=== PATIENT | male | born 1950 | race Caucasian/White ===

== ENCOUNTER 2022-11-12 20:30 | Emergency (ER) | payer MEDICARE, BC, SELFPAY ==
[2022-11-12 20:41] VITALS: BP 165/78; PULSE 85; RESP 18; TEMP 36.9; O2SAT 99; BMI 27.9
[2022-11-12 21:29] VITALS: BP 135/74; PULSE 72; RESP 18; TEMP 36.7; O2SAT 99
[2022-11-12 21:30] VITALS: BP 135/74; PULSE 72; RESP 18; TEMP 36.7
--- NOTE | 2022-11-12 22:51 | ED.GENADULT ---
HPI - General Adult General Chief complaint: Back Injury/Pain Stated complaint: fell on sunday Time Seen by Provider: 11/12/22 20:34 Source: patient and family Mode of arrival: ambulatory Limitations: no limitations History of Present Illness HPI narrative: 71-year-old male presents to the emergency department specifically requesting a muscle relaxant. He reports that he fell on Sunday morning which is 2 days ago and was evaluated in the emergency department at the [place]. this was found to be secondary to dehydration, he was given IV fluids and discharged home. He has been taking Tylenol for his pain but admittedly not at the full recommended doses. His last dose was 2 Tylenol at 7:00 p.m. which was about 2 hours prior to presentation. It sounds as though a very thorough workup was done. Since the fall he has had some crampy pain in his left posterior lower rib, low back area. There is no radiculopathy. No numbness. No loss of bowel or bladder control. No prior history of surgery in this area or significant prior injury. He has not tried taking NSAIDs or other similar medication for this. We do not have much information on him but from what I can gather from him he has a history of a stroke 3 years ago which has affected his right side. He has some ongoing weakness and balance issues especially in his right hand and right leg. He is on both aspirin and Plavix as a result of the stroke but no other anticoagulants. He has no history of GI bleed. He shows me his medication list which I extensively review. He denies any prior history of urinary retention. The pain does come and go and is not overly bothersome but he is worried about having another spasm and needing more pain control in the middle of the night. Patient failed to mention that he was in the emergency department at the [place] again last night until the end of our conversation and was prescribed prednisone and an antibiotic for respiratory issues. It sounds like he may have some underlying COPD. He said that this is helping markedly with his breathing. None of this was on the medicine list he provided to me even though I did ask him several times if there were any other changes that were not reflected on his list. There has been no new falls or injuries since 2 days ago. His spouse does accompany him and helps fill in gaps in his story. He does not use a walker or a cane at baseline continues to live independently. Past medical history form and I can gather is notable for hypertension, anxiety, prior stroke. His medications are reviewed notable for antihypertensives, aspirin and Plavix, vitamin supplements. No known drug allergies. The prednisone and antibiotic were not reflected on the medicine list but he tells me these towards the end of our interview. Related Data Home Medications Medication Instructions Recorded Confirmed amlodipine 10 mg tablet 10 mg PO DAILY 11/12/22 11/12/22 aspirin 81 mg tablet,delayed 81 mg PO DAILY 11/12/22 11/12/22 release (Adult Low Dose Aspirin) atorvastatin 80 mg tablet 80 mg PO DAILY 11/12/22 11/12/22 citalopram 10 mg tablet 10 mg PO DAILY 11/12/22 11/12/22 clopidogrel 75 mg tablet 75 mg PO DAILY 11/12/22 11/12/22 doxycycline hyclate 100 mg tablet 100 mg PO BID 11/12/22 11/12/22 fluticasone 250 mcg-salmeterol 50 1 ea inhalation BID 11/12/22 11/12/22 mcg/dose blistr powdr for inhalation (Wixela Inhub) fluticasone propionate 50 2 spray intranasal DAILY 11/12/22 11/12/22 mcg/actuation nasal spray,suspension omeprazole 20 mg capsule,delayed 20 mg PO DAILY 11/12/22 11/12/22 release prednisone 20 mg tablet 20 mg PO BID 11/12/22 11/12/22 tamsulosin 0.4 mg capsule 0.4 mg PO DAILY 11/12/22 11/12/22 Allergies Allergy/AdvReac Type Severity Reaction Status Date / Time No Known Drug Allergies Allergy Verified 11/12/22 20:44 [facility] Medical History Hypertension ?I10 - Essential (primary) hypertension (ICD-10) Peripheral vascular disease ?I73.9 - Peripheral vascular disease, unspecified (ICD-10) Pure hypercholesterolemia ?E78.00 - Pure hypercholesterolemia, unspecified (ICD-10) Stroke ?I63.9 - Cerebral infarction, unspecified (ICD-10) Surgical History History of colonoscopy ?Z98.890 - Other specified postprocedural states (ICD-10) History of removal of cyst ?Z98.890 - Other specified postprocedural states (ICD-10) History of tonsillectomy and adenoidectomy ?Z90.89 - Acquired absence of other organs (ICD-10) Social History Smoking Status: Never smoker How often do you have a drink containing alcohol: never How often do you have six or more drinks on one occasion: Never AUDIT-C Alcohol total score: 0 Non-prescribed substance use: denies use Exam Const: Vital Signs, click to edit/add: Vital Signs - 24 hr 11/12/22 20:41 11/12/22 21:29 11/12/22 21:30 Temperature 98.5 F 98.0 F 98.0 F Pulse Rate [Right Pulse Oximeter] 85 72 72 Respiratory Rate 18 18 18 Blood Pressure [Ri ght Upper Arm] 165/78 H 135/74 135/74 Pulse Oximetry 99 99 Oxygen Delivery Me thod Room Air Room Air Documenting provider has reviewed patient's vital signs: yes Common normals: no apparent distress Other: Moderate historian. Appears very comfortable, not in significant distress. Can ambulate and participate in exam with no limitation. HENMT: Common normals: normocephalic Head and scalp: normocephalic Face and sinus: normal facial exam Throat: posterior oropharynx normal Resp: Common normals: normal respiratory effort Effort & inspection: able to speak in complete sentences Cardio: Common normals: S1 normal heart sound and S2 normal heart sound Heart sounds: S1 normal and S2 normal Back & Pelvis: Other: Moderate loss of normal lumbar lordosis. No point bony tenderness to anywhere on the thoracolumbar spine. Palpation of the ribs is nontender with no crepitus. There is no bruising. No muscle spasm palpable. Mild tenderness to the left paraspinal lumbar muscles only, no other areas. No pain over the SI areas or lateral hips. 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 Compensates for this well. Neuro: Other: Chronic motor deficits right side, at baseline per him and his Psych: Other: Mild memory impairment evident. Moderate insight. Skin: Common normals: no rashes or lesions noted General skin exam: no rashes or lesions noted Course Vital Signs Vital signs: Initial Vital Signs Temperature 98.5 F 11/12/22 20:41 Temperature Source Temporal Artery Scan 11/12/22 20:41 Pulse Rate 85 11/12/22 20:41 Respiratory Rate 18 11/12/22 20:41 Blood Pressure 165/78 H 11/12/22 20:41 Blood Pressure Mean 107 11/12/22 20:41 Blood Pressure Position Sitting 11/12/22 20:41 Pulse Oximetry 99 11/12/22 20:41 Oxygen Delivery Method Room Air 11/12/22 20:41 Vital Signs Temperature 98.5 F 11/12/22 20:41 Pulse Rate 85 11/12/22 20:41 Respiratory Rate 18 11/12/22 20:41 Blood Pressure 165/78 H 11/12/22 20:41 Pulse Oximetry 99 11/12/22 20:41 Oxygen Delivery Method Room Air 11/12/22 20:41 Temperature 98.0 F 11/12/22 21:30 Pulse Rate 72 11/12/22 21:30 Respiratory Rate 18 11/12/22 21:30 Blood Pressure 135/74 11/12/22 21:30 Pulse Oximetry 99 11/12/22 21:29 Oxygen Delivery Method Room Air 11/12/22 21:29 Medical Decision Making MDM Narrative Medical decision making narrative: Lengthy conversation with patient and family on the risks and benefits of muscle relaxants. Discussed risk of urinary retention, worsening balance and gait issues, confusion. I do not think he is a good candidate for this especially with his memory difficulties and movement difficulties and recent falls. He and his significant other verbalized understanding and full agreement after we discussed the risks and benefits extensively. I also let them know that the antibiotic and prednisone he has started may be beneficial. The prednisone should help with the back spasm in time. I recommend topical NSAIDs but not oral due to the fact that he is already taking aspirin, Plavix and prednisone. Heat, gentle stretching. Follow up with primary care provider if the pain is not improving in a week for physical therapy and or other interventions. After weighing the risks and benefits extensively, he and his agree that this is the best course of action. 35 minutes were spent [id number]. Discharge Plan Discharge Clinical Impression: Back muscle spasm Patient Disposition: Home w/ Parent or Adult Condition: Stable Instructions: Muscle Spasm (ED) Additional Instructions: As we discussed, I do not think that muscle relaxants are a good idea for you. These can cause significant problems with your bladder and can make your legs even weaker. They can also cause confusion and do not interact well with your other medications. I am glad to hear that you were started on some prednisone for your breathing issues and that it is working well for you. This will actually help decrease the inflammation in the muscles in your back as well within a couple of days. I would prefer that we stick with safer methods to control your back pain since things are not severe. I recommend Tylenol 650 mg every 4 hours or 1000 mg every 6 hours as the foundation of your pain control. I do not think that it is a good idea for you to use NSAIDs like ibuprofen or Aleve in addition to your prednisone because you also already take aspirin and Plavix. Continue the prednisone and antibiotic that were prescribed to you. I do recommend that you use heat, muscle rubs like Mentholatum, Sameer-Bull, etc.. He may also use topical anti-inflammatory patches like Salon-pas applied directly to the area. These are available [id number]. If your symptoms are still very bothersome by Sunday, discuss physical therapy referral or other treatments with your primary care provider. Activity Level: Activity as Tolerated Discharge Diet: Regular Prescriptions: No Action fluticasone propion-salmeterol [Wixela Inhub] 250-50 mcg/dose blister with device 1 ea inhalation BID atorvastatin 80 mg tablet 80 mg PO DAILY citalopram 10 mg tablet 10 mg PO DAILY clopidogrel 75 mg tablet 75 mg PO DAILY amlodipine 10 mg tablet 10 mg PO DAILY fluticasone propionate 50 mcg/actuation spray,suspension 2 spray INTRANASAL DAILY Patient Comments: 2 sprays each nostril every day doxycycline hyclate 100 mg tablet 100 mg PO BID prednisone 20 mg tablet 20 mg PO BID tamsulosin 0.4 mg capsule 0.4 mg PO DAILY omeprazole 20 mg capsule,delayed release(DR/EC) 20 mg PO DAILY aspirin [Adult Low Dose Aspirin] 81 mg tablet,delayed release (DR/EC) 81 mg PO DAILY Stand Alone Forms: [employer] Info Instructions
== END 2022-11-12 21:36 | disposition home or self-care (01) ==
LOC: ED 21:33
PROVIDERS: Emergency Provider Family Medicine
DX: M62.830 Muscle spasm of back (principal)
CPT/HCPCS: 99283